=== PATIENT | female | born 1995 | race Caucasian/White ===

== ENCOUNTER 2020-08-23 07:02 | Day surgery (SDC) | payer OTHER, SELFPAY ==
[~2020-08-23] VITALS: Ht 160 cm; Wt 86.2 kg
[2020-08-23] MEDS ORDERED: MIDAZOLAM 5 MG/5 ML VIAL ONE (08:22)
[2020-08-23] MEDS ORDERED: diphenhydrAMINE 50 MG/ML VIAL ONE (08:22)
[2020-08-23] MEDS ORDERED: fentaNYL citrate 0.05 MG/ML VIAL ONE (08:22)
[2020-08-23] MEDS: MIDAZOLAM 2 MG/2 ML VIAL IVP ONE (08:42)
[2020-08-23] MEDS: LIDOCAINE 2% 100 MG/5 ML UJET TP ONE (08:44)
[2020-08-23] MEDS: fentaNYL citrate 0.05 MG/ML VIAL IVP ONE (08:44)
[2020-08-23] MEDS ORDERED: SIMETHICONE 40 MG/0.6 ML ONE (11:50)
== END 2020-08-23 10:06 | disposition home or self-care (01) ==
LOC: MMU 07:02 → MDS 07:02
PROVIDERS: ATTEND Internal Medicine Gastroenterology
DX: K62.5 Hemorrhage of anus and rectum (principal); K59.00 Constipation, unspecified; B96.81 Helicobacter pylori [H. pylori] as the cause of diseases classified elsewhere; F17.210 Nicotine dependence, cigarettes, uncomplicated; Z20.828 Contact with and (suspected) exposure to other viral communicable diseases; Z79.899 Other long term (current) drug therapy
CPT/HCPCS: 36415; 45378; 84702; J1200; J2250; J3010; U0003